=== PATIENT | female | born 1985 | race Caucasian/White ===

== ENCOUNTER → 2019-01-31 | Outpatient (CLI) | payer OTHER ==
[~2019-01-31] MED LIST: ACEASPCAF PO; ACET325; ACET500 PO; ACETAMINOPHEN500 MG PO; ACYC400 PO; ACYC5TO15G TOP; ACYC800 PO; ADAL40PEN; ADAL40PEN SC; ALBU90OI INH; ALBU90OI6 INH; AMOCLA875 PO; AMOX250 PO; ASCO500 PO; AZAT50 PO; AZIT250 PO; AZIT500 PO; Acetaminophen-1 EAC1 PO; BAYER; BC PATCH; BENADRYL25 MG PO; BENZ100A PO; CETI5; CIPR500 PO; CLARITIN10 MG PO; CYCL10 PO; Cipro500 MG PO; DICL25ER PO; DIPH25 PO; DIPH50 PO; DOCU100 PO; DONNATAL E16.2 MG/5 PO; ENTYVIO300 MG IV; EPIPEN 2-P0.3 MG/0.3 IM; Epipen0.3 MG/0.3 IM; FENT50TP; FENUGREEK; FLUO10 PO; FLUSAL1005; FLUT.05NI; FLUT110OIA INH; FOLI1 PO; Flovent Disku100 MCG IH; HUMIRA40 MG/0.8 INJ; HYDACE5; HYDACE5 PO; HYDACE7.5; HYDR1TAB94 PO; HYDROXYCUT; HYOS.125 SL; IBUP800 PO; LANS15EC PO; MESA250ER; MESA250ER PO; METR250; MULVITMINE PO; NAPR500 PO; NORT10S PO; Norco 5-325 Ta1 EACH PO; OMEP20ER PO; OMEP40CA12 PO; ONDA4ODT MM; ONDA8 SL; ONDA8ODT MM; OXYACE5T PO; OXYC15ER PO; PENVK500 PO; PEPTO BISMAL; PHENA100 PO; PRED10 PO; PRED20 PO; PRED5; PROC10 PO; PRODEXEL PO; PROM25; PROM25 PO; PROP10 PO; PSEU120ER PO; Pepcid20 MG PO; Prednisone20 MG PO; Prilosec Otc20 MG; Questran4 GM GT; RABE20; RANI150 PO; ROPI1 PO; RXOXYACE PO; RXPROM25 PO; Roxicodone5 MG PO; SPRINTEC; SULF10OPSA OU; SUMA25 PO; TRAACE; TRAM50 PO; TRIA80TC TOP; VICODIN 5-3001 EACH PO; VITAMIN C; Zofran Odt8 MG SL; Zofran4 MG PO; [UNRECOGNIZED DRUG - OTHER]
[2019-02-04 15:06] LABS: HPV 16 Negative (Negative); HPV 18 Negative (Negative); HPV OTHER HR TYPES Negative (Negative)
== END | disposition home or self-care (01) ==
LOC: LAB SHORT 15:00 → LAB 15:00
PROVIDERS: Obstetrics & Gynecology
DX: Z01.419 Encounter for gynecological examination (general) (routine) without abnormal findings (principal)
CPT/HCPCS: 87624; G0123

== ENCOUNTER → 2019-02-22 | Outpatient (CLI) | payer OTHER ==
[2019-02-23 14:09] LABS: Candida species (DNA Probe) Positive (NEGATIVE); G. vaginalis (DNA Probe) Negative (NEGATIVE); T. vaginalis (DNA Probe) Negative (NEGATIVE)
== END | disposition home or self-care (01) ==
LOC: LAB EV 15:38 → LAB SHORT 15:38
PROVIDERS: Physician Assistant
DX: R10.2 Pelvic and perineal pain (principal)
CPT/HCPCS: 87480; 87510; 87660

== ENCOUNTER → 2021-12-31 | Outpatient (CLI) | payer OTHER | LOC: LAB SHORT 12:17 | DX: M25.561 Pain in right knee (principal); M25.562 Pain in left knee | CPT/HCPCS: 86430 ==

== ENCOUNTER → 2025-08-27 | Outpatient (CLI) | payer OTHER ==
[2025-08-28 07:30] LABS: Bacterial Vaginosis PCR Negative (NEGATIVE); Candida Group, PCR NOT DETECTED (NOT DETECT); Candida glabrata-krusei, PCR NOT DETECTED (NOT DETECT)
[2025-08-28 07:56] LABS: Chlamydia Trachomatis Vaginal NOT DETECTED (NOT DETECT); Neisseria Gonorrhoea Vaginal NOT DETECTED (NOT DETECT)
== END ==
LOC: LAB SHORT 17:17 → LAB 17:17
PROVIDERS: Advanced Practice Midwife
DX: Z01.419 Encounter for gynecological examination (general) (routine) without abnormal findings (principal); Z11.3 Encounter for screening for infections with a predominantly sexual mode of transmission; N76.0 Acute vaginitis
CPT/HCPCS: 81515; 87491; 87591; 87624; G0145